=== PATIENT | male | born 1985 | race African-American/Black ===

== ENCOUNTER 2025-06-29 14:20 | Emergency (ER) | payer SELFPAY ==
--- NOTE | ~2025-06-29 | XR_ITS ---
EXAMINATION: XR chest 1V portable COMPARISON: No comparisons available. HISTORY: cp FINDINGS: The lungs are clear, no effusion. No pneumothorax. Heart is normal size. Mediastinal and hilar contours are within normal limits. Bony thorax no acute abnormality. Miscellaneous: None Impression: No acute cardiopulmonary abnormality. Reviewed, dictated and finalized at location A. Impression: No acute cardiopulmonary abnormality.
--- NOTE | ~2025-06-29 | CT_ITS ---
EXAMINATION: CTA chest PE abdomen pel DATE: 06/29/2025 16:48 INDICATION: Chest pain. TECHNIQUE: Computed tomography angiography (CTA) of the chest was performed with 100 mL Omnipaque-350 intravenous contrast timed to evaluate the pulmonary arteries. Coronal maximum intensity projection 3D-reconstructions were created by the technologist. Computed tomography (CT) of the abdomen and pelvis was performed with intravenous contrast. Automated exposure control and iterative reconstruction technique were employed. The dose-length product was 2062.49 mGy-cm. COMPARISON: None. FINDINGS: CTA chest: There is mild emphysema. There is minimal atelectasis on the right. No pleural effusion. The heart size is normal. No pericardial effusion. There is no pulmonary embolus. There is mild thoracic spondylosis. There are old healed bilateral rib fractures. CT abdomen and pelvis: The liver, gallbladder, spleen, pancreas, adrenal glands, and kidneys are normal. There are no dilated loops of bowel. The appendix is normal. There are no pathologically enlarged lymph nodes. There is no free intraperitoneal fluid. There are pins in right femoral head. There is moderate right hip osteoarthritis and mild left hip osteoarthritis. There is mild lumbar spondylosis. IMPRESSION: 1. No pulmonary embolus. Sensitivity is mildly decreased by motion artifact. 2. Mild emphysema. Reviewed, dictated and finalized at location K.
[2025-06-29 14:21] VITALS: BP 154/88; PULSE 81; RESP 13; TEMP 36.4; O2SAT 98
--- NOTE | 2025-06-29 14:32 | ECG_ITS ---
Test Date: 2025-06-29 14:27:00 Measurements Intervals [place] Rate: 85 P: 71 AL: 165 QRS: 51 QRSD: 98 T: 63 QT: 396 QTc: 473 Interpretive Statements SINUS RHYTHM NORMAL ECG No previous ECG available for comparison Electronically Signed On 06-30-2025 08:00:13 CDT by Elgin Murguia M.D.
[2025-06-29 14:34] VITALS: PULSE 73; O2SAT 100
[2025-06-29 15:15] VITALS: BP 155/94; PULSE 73; RESP 25; O2SAT 100
[2025-06-29 15:20] LABS: Hematocrit 42.9 % (42.0-52.0); Hemoglobin 14.2 g/dL (14.0-18.0); Immature Granulocyte Percent A 0.2 % (0-0.5); Lymphocytes Absolute Auto 0.87 K/mm3 (0.9-3.2); Mean Corpuscular HGB Conc 33.1 g/dl (32-36); Mean Corpuscular Hemoglobin 27.4 pg (26-34); Mean Corpuscular Volume 82.7 fl (80-100); Nucleated Red Blood Cells Absolute Auto 0.000 K/mm3 (0.0-0.012); Nucleated Red Blood Cells Perc 0.0 % (0.0-0.2); Platelet Count Result 278 k/mm3 (150-375); Red Blood Count 5.19 M/mm3 (4.6-6.20); White Blood Count 5.9 K/mm3 (4.5-10.0)
[2025-06-29 15:30] LABS: Alanine Aminotransferase 21 U/L (6-50); Albumin Level 4.4 g/dL (3.5-5.1); Alkaline Phosphatase 76 U/L (38-126); Anion Gap 10 mmol/L (4-12); Aspartate Amino Transferase 29 U/L (17-59); Bilirubin,Total 0.4 mg/dL (0.2-1.3); Blood Urea Nitrogen 14 mg/dL (9-20); Calcium 9.1 mg/dL (8.4-10.2); Carbon Dioxide 15 mmol/L (22-30); Chloride 110 mmol/L (98-107); Estimated CRCL calculation 117 ml/min; Estimated Glomerular Filt Rate > 60; Glucose 106 mg/dL (65-110); Lipase 68 U/L (23-300); Potassium 3.9 mmol/L (3.4-5.0); Sodium 135 mmol/L (137-145); Total Protein 8.4 g/dL (6.3-8.2)
[2025-06-29 15:32] LABS: INR 1.1; Prothrombin Time 13.9 Seconds (11.1-14.7)
[2025-06-29 15:33] LABS: Partial Thromboplastin Time 24.9 Seconds (22.3-36.8)
[2025-06-29 15:41] LABS: Troponin I 0.020 ng/mL (0.000-0.034)
--- NOTE | 2025-06-29 15:56 | ED.GENADULT ---
HPI - General Adult General Chief complaint: Chest Pain Stated complaint: extreme diaphoresis/CP Time Seen by Provider: 06/29/25 15:03 History of Present Illness HPI narrative: Jake Parks is a 40-year-old male who presents today and PD custody with complaints of having chest and abdomen pain that started 2 hours prior to arrival. He states that is more mid abdomen he feels like there is something crawling in his abdomen up to his chest he states that the pain is burning and severe in his belly but also into his chest he states he has history of a blood clot in his chest he has noise take his medications. He also states that he has a history of hypertension and bipolar. Related Data Allergies Allergy/AdvReac Type Severity Reaction Status Date / Time tramadol Allergy Hives Verified 06/29/25 14:38 Review of Systems Review of Systems: All systems reviewed & are unremarkable except as noted in HPI and below Exam Narrative: GENERAL: Patient is restrain the bed HEAD: Normocephalic, atraumatic. EYES: PERRLA and EOMI. ENT: Nares clear, no rhinorrhea or epistaxis. Mucous membranes moist. Oropharynx without tonsillar hypertrophy exudate or other lesions. Bilateral TMs pearly schneider nonbulging NECK: Supple. No adenopathy or masses. No carotid bruits or JVD CHEST: Clear to auscultation. No respiratory distress. No wheezes rales or rhonchi HEART: Regular rate and rhythm. No murmur heard. Normal peripheral pulses. ABDOMEN: Soft, nontender, nondistended, normal active bowel sounds. EXTREMITIES: Normal range of motion. No edema. SKIN: Warm, dry, no rash. NEURO: No focal deficits. Alert and oriented x3. PSYCH: Normal mood and affect. Course Vital Signs Vital signs: Vital Signs Temperature 36.4 C L 06/29/25 14:21 Pulse Rate 81 06/29/25 14:21 Respiratory Rate 13 06/29/25 14:21 Blood Pressure 154/88 H 06/29/25 14:21 Pulse Oximetry 98 06/29/25 14:21 Oxygen Delivery Room Air 06/29/25 14:21 Temperature 36.4 C L 06/29/25 14:21 Pulse Rate 73 06/29/25 15:15 Respiratory Rate 25 H 06/29/25 15:15 Blood Pressure 155/94 H 06/29/25 15:15 Pulse Oximetry 100 06/29/25 15:15 Oxygen Delivery Room Air 06/29/25 14:34 Medical Decision Making [facility] Narrative Medical decision making narrative: 40-year-old male who presents today with PD in custody from nursing home complaining of belly and chest pain. He states he does have a history of blood clots in his lungs, high blood pressure and bipolar. On exam he is thrashing around intermittently telling me that he feels like there is something burning in his stomach moving up into his chest and going on for 2 hours he states he did have some diarrhea On exam his lung sounds are clear bowel sounds are present abdomen is soft No recent fevers or cough. PD here and wanting a fit her confinement will start a cardiac workup including 2 troponins, CT PE protocol and a CT abdomen pelvis will treat him when it is somewhat itching, ketorolac fluids, dicyclomine and re-evaluate After re-evaluation patient she he states that he does feel something for his anxiety and bipolar will give him 1 dose of p.o. Ativan 1 mg and waiting to do the 2nd troponin before discharging His imaging is negative for PE or any acute findings and lab work is stable CBC is unremarkable CMP shows bicarb of 15 which is likely from him hyperventilating and there sodium 135, lipase negative Second trop is NEgative Patient will be d/c to nursing home PCP referral provided Return precautions provided Medical Records Medical records reviewed: Yes I reviewed the external patient's medical records. Vital Signs Vital Signs: Vital Signs Temperature 36.4 C L 06/29/25 14:21 Pulse Rate 81 06/29/25 14:21 Respiratory Rate 13 06/29/25 14:21 Blood Pressure 154/88 H 06/29/25 14:21 Pulse Oximetry 98 06/29/25 14:21 Oxygen Delivery Room Air 06/29/25 14:21 Temperature 36.4 C L 06/29/25 14:21 Pulse Rate 73 06/29/25 15:15 Respiratory Rate 25 H 06/29/25 15:15 Blood Pressure 155/94 H 06/29/25 15:15 Pulse Oximetry 100 06/29/25 15:15 Oxygen Delivery Room Air 06/29/25 14:34 Vitals reviewed Lab Data Lab results reviewed: Yes I reviewed the patient's lab results. 06/29/25 15:14 06/29/25 15:14 Labs: Lab Results 06/29/25 Range/Units 15:14 WBC 5.9 (4.5-10.0) K/mm3 RBC 5.19 (4.6-6.20) M/mm3 Hgb 14.2 (14.0-18.0) g/dL Hct 42.9 (42.0-52.0) % MCV 82.7 (80-100) fl MCH 27.4 (26-34) pg MCHC 33.1 (32-36) g/dl RDW 14.4 (11.5-14.5) % Plt Count 278 (150-375) k/mm3 MPV 8.9 (7.4-10.4) fl Immature Gran % (Auto) 0.2 (0-0.5) % Neut % (Auto) 76.4 H (45.5-73.1) % Lymph % (Auto) 14.9 L (18.3-44.2) % Prentiss % (Auto) 8.0 (2.6-8.5) % Eos % (Auto) 0.2 (0-4.4) % Baso % (Auto) 0.3 (0.2-1.2) % Lymph # (Auto) 0.87 L (0.9-3.2) K/mm3 Prentiss # (Auto) 0.5 (0.1-0.6) K/mm3 Eos # (Auto) 0.0 (0-0.3) K/mm3 Baso # (Auto) 0.0 (0.0-0.1) K/mm3 Abs Immat Gran (auto) 0.01 (0.00-0.031) K/mm3 Absolute Neuts (auto) 4.5 (1.3-6.7) K/mm3 Absolute Nucleated RBC 0.000 (0.0-0.012) K/mm3 Nucleated RBC % 0.0 (0.0-0.2) % PT 13.9 (11.1-14.7) Seconds INR 1.1 APTT 24.9 (22.3-36.8) Seconds Sodium 135 L (137-145) mmol/L Potassium 3.9 (3.4-5.0) mmol/L Chloride 110 H (98-107) mmol/L Carbon Dioxide 15 L (22-30) mmol/L Anion Gap 10 (4-12) mmol/L BUN 14 (9-20) mg/dL Creatinine 0.98 (0.7-1.3) mg/dL Estim Creat Clear Calc 117 ml/min Estimated GFR > 60 (59 - ) Glucose 106 (65-110) mg/dL Calcium 9.1 (8.4-10.2) mg/dL Total Bilirubin 0.4 (0.2-1.3) mg/dL AST 29 (17-59) U/L ALT 21 (6-50) U/L Alkaline Phosphatase 76 (38-126) U/L Troponin I 0.020 (0.000-0.034) ng/mL Total Protein 8.4 H (6.3-8.2) g/dL Albumin 4.4 (3.5-5.1) g/dL Lipase 68 (23-300) U/L Imaging Data Radiologist's impression: Impressions Chest X-Ray 06/29/25 15:29 Impression: No acute cardiopulmonary abnormality. Chest/Abdomen/Pelvis CTA 06/29/25 16:55 IMPRESSION: 1. No pulmonary embolus. Sensitivity is mildly decreased by motion artifact. 2. Mild emphysema. ECG Data EKG #1: ECG completion date: 06/29/25 ECG completion time: 14:27 Prior ECG tracings: not available for review Interpretation: Rate 85 FL 165 QRSd 98 QT 396 QTc 473 --[place]-- P 71 QRS 51 T 63 SINUS RHYTHM No previous ECG available for comparison EKG #2: ECG completion date: 06/29/25 ECG completion time: 18:02 Prior ECG tracings: available for review Interpretation: 62 FL 182 QRSd 102 QT 444 QTc 452 --[place]-- P 61 QRS 23 T 42 SINUS RHYTHM WITH SINUS ARRHYTHMIA Discharge Plan Discharge Clinical Impression: Atypical chest pain Abdominal pain Qualifiers: Abdominal location: unspecified location Qualified Code(s): R10.9 - Unspecified abdominal pain Patient Disposition: Home Condition: Stable Instructions: Antibiotic Form Additional Instructions: Continue your home medications, please follow up with the PCP in 1 week If you should have any new or worsening symptoms return to the ER. Patient is fit for confinement Patient Language: Lao Follow-up/Referrals: PHYSICIAN,LOOPER FIXER [Primary Care Provider, Internal Medicine] Jayden Maya MD [Physician, Family Practice] - 1 Week
[2025-06-29] MEDS: FAMOTIDINE 20 MG/2 ML VIAL IV PUSH (16:24)
[2025-06-29] MEDS: KETOROLAC 30 MG/ML VIAL (*BKC) IV PUSH (16:27)
[2025-06-29] MEDS: LACTATED RINGERS 1,000 ML 999 ML IV CONT (16:28)
[2025-06-29] MEDS: DICYCLOMINE HCL INJ 20 MG/2 ML VIAL IM (16:30)
[2025-06-29 16:32] VITALS: BP 145/88; PULSE 72; RESP 21; O2SAT 100
[2025-06-29 17:12] VITALS: BP 145/94; PULSE 65; RESP 23; O2SAT 100
--- NOTE | 2025-06-29 17:42 | ECG_ITS ---
Test Date: 2025-06-29 18:02:41 Measurements Intervals [place] Rate: 62 P: 61 [place]: 182 QRS: 23 QRSD: 102 T: 42 QT: 444 QTc: 452 Interpretive Statements SINUS RHYTHM WITH SINUS ARRHYTHMIA MODERATE T-WAVE ABNORMALITY, CONSIDER ANTEROSEPTAL ISCHEMIA [-0.1+ mV T WAVE IN V3/V4] ABNORMAL ECG Compared to ECG 06/29/2025 14:27:00 T-wave abnormality now present Possible ischemia now present Electronically Signed On 06-30-2025 08:07:17 CDT by Elgin Murguia M.D.
[2025-06-29] MEDS: LORazepam (*CRX) 1 MG TABLET PO (17:47)
[2025-06-29 18:29] LABS: Troponin I 0.022 ng/mL (0.000-0.034)
== END 2025-06-29 19:39 | disposition home or self-care (01) ==
PROVIDERS: Emergency Medicine; Emergency Provider Nurse Practitioner Family
DX: R07.89 Other chest pain (principal); R10.9 Unspecified abdominal pain; I10 Essential (primary) hypertension; Z79.899 Other long term (current) drug therapy
CPT/HCPCS: 36415; 71045; 71275; 74177; 80053; 83690; 84484; 85025; 85610; 85730; 93005; 96361; 96372; 96374; 96375; 99284; A9270; J0500; J1885; J7120; Q9967

== ENCOUNTER 2025-08-14 11:48 | Emergency (ER) | payer MEDICAID, SELFPAY ==
--- OUTSIDE RECORDS SUMMARY | 2025-04-28 04:45 | XMS_ITS ---
Author Organization [facility] Address [address] [facility] [address] [place] [address] Care Team Providers Care Glove Turner And Former Name Role Phone Roni Regan Primary Care Provider Encounters Encounter Location Date Provider Diagnosis [address] [place] [address] 04/28/2025 Roni Regan Plan Of Treatment No Information Progress Notes * RADHA TEMPLEDOB:1985 (40 yo M)Acc No.[id number]:04/28/2025 Progress Notes Patient: RADHA MONTES Provider: Pool Regan M.D. :1985 A ge:40 Y S ex:Male Date:04/28/2025 Address:[address] Subjective: * Chief Complaints: * * Medical History: Objective: * Vitals: Assessment: Plan: * Treatment: * * Electronic signature of Darryl Regan MD on 08/14/2025 at 12:51 PM EDT Sign off status: Pending * Provider: Pool Regan M.D. Date: 0 04/28/2025 Generated for Printi ng/Faxing/eTransmitting on: 1 12:51 PM EDT
--- OUTSIDE RECORDS SUMMARY | 2025-05-04 10:15 | XMS_ITS ---
Author Organization [facility] Address [address] [address] Care Team Providers Care Press Set Up Person Name Role Phone Roni Regan Primary Care Provider Allergies Allergen (clinical drug ingredient) Drug/Non Drug Allergy documented on EMR Reaction Allergy Type Onset Date Status naproxen Naproxen hives Drug Allergy Active REASON FOR VISIT Video - c/o sore throat x 4 days. Covid-Neg, Consent given for video visit. - ple, Pain med eval/refill Medications Medication SIG (Take, Route, Frequency, Duration) Notes Start Date End Date Status Warfarin Sodium 10 MG 1 tablet Orally On ce a day or as directed; Duration: 30 day(s) 01/08/2023 Not-Taking Warfarin Sodium 2 MG 1 tablet Orally Onc e a day Not-Taking Symbicort 160-4.5 MCG/ACT INHALE 2 PUFFS BY MOUTH TWICE DAILY; Duration: 30 days Active Warfarin Sodium 7.5 MG TAKE 1 TABLET BY MOUTH EVERY DAY; Duration: 30 Not-Taki ng amLODIPine Besylate 10 MG TAKE 1 TABLET BY MOUTH EVERY DAY; Duration: 90 days Active busPIRone HCl 30 MG 1 tablet Orally Twic e a day Active Tylenol 325 MG 1 tablet as needed Orally every 6 hrs; Duration: 30 days 07/22/2024 Active Ferrous Sulfate 325 (65 Fe) MG 1 tablet Orally Once a day Active PARoxetine HCl 20 MG 1 tablet in the mor gabrielle Orally Once a day Active Multivitamin - 1 tablet Orally Once a day; Duration: 30 day(s) 12/26/2023 Active Zithromax Z-Deric 250 MG as directed Orall y 2 TABLETS FIRST DAY AND 1 TABLET EACH DAY FOR 5 DAYS; Duration: 5 days 05/04/2025 Active HYDROcodone-Acetaminophen 10-325 MG 1 tablet as needed Orally every 6 hrs; Duration: 30 days 04/14/2025 Active Social History Tobacco Use: Social History Observation Description Date Details (start date - stop date) Current Smoker NA - NA Tobacco Use/Smoking Question Answer Notes Are you a current smoker How often do you smoke cigarettes? every day How many cigarettes a day do you smoke? 5 or les s How soon after you wake up do you smoke your fir st cigarette? 6-30 minutes Are you interested in quitting? Ready to quit Alcohol Screen (Audit-C) Question Answer Notes Did you have a drink containing alcohol in the p ast year? No Points 0 Interpretation Negative Tobacco use other than smoking: Question Answer Notes Are you an other tobacco user? No Vital Signs Height 71 in 05/04/2025 ple Encounters Encounter Location Date Provider Diagnosis [place] [id number] [address] 05/04/2025 Roni Regan Pharyngitis J02.9 ; Primary hypertension I10 ; Mild intermittent asthma without complication J45.20 ; Low back pain, unspecified M54.50 ; Chronic pain syndrome G89.4 and Narcotic dependence F11.20 Assessments Encounter Date Diagnosis (ICD Code) Assessment Notes Treatment Notes Treatment Clinical Notes Section Notes 05/04/2025 Pharyngitis (ICD-10 - J02.9) 05/04/2025 Primary hypertension (ICD-10 - I10) High Blood Pressure: Care Instructions material was published 05/04/2025 Mild intermittent asthma without complication (ICD-10 - J45.20) 05/04/2025 Low back pain, unspecified (ICD-10 - M54.50) 05/04/2025 Chronic pain syndrome (ICD-10 - G89.4) 05/04/2025 Narcotic dependence (ICD-10 - F11.20) Plan Of Treatment Medication Medication Name Sig Start Date Stop Date Notes Zithromax Z-Deric 250 MG as directed Orall y 2 TABLETS FIRST DAY AND 1 TABLET EACH DAY FOR 5 DAYS; Duration: 5 days 05/04/2025 Treatment Notes Assessment Notes Primary hypertension High Blood Pressure : Care Instructions material was published Progress Notes * RADHA TEMPLEDOB:1985 (40 yo M)Acc No.[id number]:05/04/2025 Progress Notes Patient: RADHA MONTES Provider: Pool Regan M.D. :1985 A ge:40 Y S ex:Male Date:05/04/2025 Address:[address] [place] [address] Subjective: * Chief Complaints: * 1 . Video - c/o sore throat x 4 days. Covid-Neg. 2. Consent given for video visit. -ple. 3. Pain med eval/refill. * Medical History: H TN, BLood clots in lungs, Asthma. * Surgical History: h ernia 2020, hip surgery 04/05. * Family History: F ather: alive. M other: alive, diagnosed with Unspecified essential hypertension. 3 brother(s) , 1 sister(s) - healthy. 3 son(s) , 3 daughter(s) - healthy. . * Social History: T obacco Use: T obacco Use/Smoking A re you a c urrent smoker, H ow often do you smoke cigarettes? e very day, H ow many cigarettes a day do you smoke? 5 or less, H ow soon after you wake up do you smoke your first cigarette? 6 -30 minutes, A re you interested in quitting? R tru to quit. T obacco use other than smoking A re you an other tobacco user? N o. D rugs/Alcohol: D rugs H ave you used drugs other than those for medical reasons in the past 12 months??No. A lcohol Screen (Audit-C) D id you have a drink containing alcohol in the past year? N o, P oints 0 , I nterpretation N egative. C affeine I ntake: n one. D o you smoke marijuana?: Admits. Do you drink alcohol?: No. * Medications: T aking HYDROcodone-Acetaminophen 10-325 MG Tablet 1 tablet as needed Orally every 6 hrs , Taking Ferrous Sulfate 325 (65 Fe) MG Tablet 1 tablet Orally Once a day , Taking PARoxetine HCl 20 MG Tablet 1 tablet in the morning Orally Once a day , Taking busPIRone HCl 30 MG Tablet 1 tablet Orally Twice a day , Taking Tylenol 325 MG Tablet 1 tablet as needed Orally every 6 hrs , Taking Multivitamin - Tablet 1 tablet Orally Once a day , Taking amLODIPine Besylate 10 MG Tablet TAKE 1 TABLET BY MOUTH EVERY DAY , Taking Symbicort 160-4.5 MCG/ACT Aerosol INHALE 2 PUFFS BY MOUTH TWICE DAILY , Not-Taking/PRN Warfarin Sodium 7.5 MG Tablet TAKE 1 TABLET BY MOUTH EVERY DAY , Not-Taking/PRN Warfarin Sodium 10 MG Tablet 1 tablet Orally Once a day or as directed , Not-Taking/PRN Warfarin Sodium 2 MG Tablet 1 tablet Orally Once a day , Medication List reviewed and reconciled with the patient * Allergies: N aproxen: hives. Objective: * Vitals: H t: 71 in, Ht-cm: 180.34 cm. ple. Assessment: * Assessment: 1. P haryngitis - J02.9 (Primary) 2 . P rimary hypertension - I10 ? 3 . M ild intermittent asthma without complication - J45.20 4 . L ow back pain, unspecified - M54.50 5 . C hronic pain syndrome - G89.4 ?6. N arcotic dependence - F11.20 Plan: * Treatment: 2. P rimary hypertension Notes: High Blood Pressure: Care Instructions material was published * Preventive Medicine: Your Preventative Wellness Plan: E ndoscopy E ndoscopy Date 10/26/2023. Counseling: C are goal follow-up plan: A lilliana Normal BMI Follow-up F eeding regime, Giving encouragement to exercise. * * Electronic signature of Darryl Regan MD on 08/14/2025 at 12:52 PM EDT Sign off status: Pending * Provider: Pool Regan M.D. Date: 0 05/04/2025 Generated for [place]/John Paul/Jaimee on: 12:52 PM EDT
--- OUTSIDE RECORDS SUMMARY | 2025-05-07 04:45 | XMS_ITS ---
Author Organization [facility] Address [address] [facility] [address] [place] [address] Care Team Providers Care Stitcher Hand Name Role Phone Roni Regan Primary Care Provider [phone] Encounters Encounter Location Date Provider Diagnosis [address] [place] [address] 05/07/2025 Roni Regan Plan Of Treatment No Information Progress Notes * RADHA TEMPLEDOB:1985 (40 yo M)Acc No.[id number]:05/07/2025 Progress Notes Patient: RADHA MONTES Provider: Pool Regan M.D. :1985 A ge:40 Y S ex:Male Date:05/07/2025 Address:[address] [facility] Subjective: * Chief Complaints: * * Medical History: Objective: * Vitals: Assessment: Plan: * Treatment: * * Electronic signature of Darryl Regan MD on 08/14/2025 at 12:52 PM EDT Sign off status: Pending * Provider: Pool Regan M.D. Date: 05/07/2025 Generated for Printi ng/Faxing/eTransmitting on: 1 12:52 PM EDT
--- OUTSIDE RECORDS SUMMARY | 2025-05-21 09:45 | XMS_ITS ---
Author Organization [facility] Address [address] [facility] 2 [place] [address] Care Team Providers Care Support Analyst Name Role Phone Roni Regan Primary Care Provider Encounters Encounter Location Date Provider Diagnosis [address] [place] [address] 05/21/2025 Roni Regan Plan Of Treatment No Information Progress Notes * RADHA TEMPLEDOB:1985 (40 yo M)Acc No.[id number]:05/21/2025 Progress Notes Patient: RADHA MONTES Provider: Pool Regan M.D. :1985 A ge:40 Y S ex:Male Date:05/21/2025 Address:[address] Subjective: * Chief Complaints: * * Medical History: Objective: * Vitals: Assessment: Plan: * Treatment: * * Electronic signature of Darryl Regan MD on 08/14/2025 at 12:52 PM EDT Sign off status: Pending * Provider: Pool Regan M.D. Date: 0 05/21/2025 Generated for Printi ng/Faxing/eTransmitting on: 1 12:52 PM EDT
--- OUTSIDE RECORDS SUMMARY | 2025-06-09 08:15 | XMS_ITS ---
Author Organization [facility] Address [address] [address] Care Team Providers Care It Quality Analyst Name Role Phone Roni Regan Primary Care Provider Allergies Allergen (clinical drug ingredient) Drug/Non Drug Allergy documented on EMR Reaction Allergy Type Onset Date Status naproxen Naproxen hives Drug Allergy Active REASON FOR VISIT Pain med eval/refill, F/U HTN Medications Medication SIG (Take, Route, Frequency, Duration) Notes Start Date End Date Status Budesonide-Formoterol Fumarate 160-4.5 MCG/ACT INHALE 2 PUFFS BY MOUTH TWICE DAILY; Duration: 60 Active Warfarin Sodium 7.5 MG TAKE 1 TABLET BY MOUTH EVERY DAY; Duration: 30 Not-Taki ng amLODIPine Besylate 10 MG TAKE 1 TABLET BY MOUTH EVERY DAY; Duration: 90 days Active Zithromax Z-Deric 250 MG as directed Orall y 2 TABLETS FIRST DAY AND 1 TABLET EACH DAY FOR 5 DAYS; Duration: 5 days 05/04/2025 Active HYDROcodone-Acetaminophen 10-325 MG 1 tablet as needed Orally every 6 hrs; Duration: 30 days 05/04/2025 Active Multivitamin - 1 tablet Orally Once a day; Duration: 90 days 12/26/2023 Active Ferrous Sulfate 325 (65 Fe) MG 1 tablet Orally Once a day Active PARoxetine HCl 20 MG 1 tablet in the mor gabrielle Orally Once a day Active busPIRone HCl 30 MG 1 tablet Orally Twic e a day Active Tylenol 325 MG 1 tablet as needed Orally every 6 hrs; Duration: 30 days 07/22/2024 Active Warfarin Sodium 10 MG 1 tablet Orally On ce a day or as directed; Duration: 30 day(s) 01/08/2023 Not-Taking Warfarin Sodium 2 MG 1 tablet Orally Onc e a day Not-Taking Social History Tobacco Use: Social History Observation [...] an other tobacco user? No Vital Signs Temperature 98.0 degrees Fahrenheit 06/09/20 25 Blood pressure systolic 148 mm Hg 06/09/20 25 Blood pressure diastolic 90 mm Hg 025 Heart Rate 96 /min 06/09/2025 Respiratory Rate 16 /min 06/09/2025 Height 71 in 06/09/2025 Weight 261 lbs 06/09/2025 BMI 36.4 kg/m2 06/09/2025 Oximetry 101 % 06/09/2025 tm/ple Encounters Encounter Location Date Provider Diagnosis [facility] [address] [address] 06/09/2025 Roni Regan Primary hypertension I10 ; Mild intermittent asthma without complication J45.20 ; Anxiety F41.9 ; Low back pain, unspecified M54.50 ; Chronic pain syndrome G89.4 ; Narcotic dependence F11.20 and History of pulmonary embolism Z86.711 Assessments Encounter Date Diagnosis (ICD Code) Assessment Notes Treatment Notes Treatment Clinical Notes Section Notes 06/09/2025 Primary hypertension (ICD-10 - I10) High Blood Pressure: Care Instructions material was published 06/09/2025 Mild intermittent asthma without complication (ICD-10 - J45.20) 06/09/2025 Anxiety (ICD-10 - F41.9) 06/09/2025 Low back pain, unspecified (ICD-10 - M54.50) 06/09/2025 Chronic pain syndrome (ICD-10 - G89.4) 06/09/2025 Narcotic dependence (ICD-10 - F11.20) 06/09/2025 History of pulmonary embolism (ICD-10 - Z86.711) Plan Of Treatment Medication Medication Name Sig Start Date Stop Date Notes amLODIPine Besylate 10 MG TAKE 1 TABLET BY MOUTH EVERY DAY; Duration: 90 days Multivitamin - 1 tablet Orally Once a day; Duration: 90 days 12/26/2023 Treatment Notes Assessment Notes Primary hypertension High Blood Pressure : Care Instructions material was published Progress Notes * RADHA TEMPLEDOB:1985 (40 yo M)Acc No.[id number]:06/09/2025 Progress Notes Patient: RADHA MONTES Provider: Pool Regan M.D. :1985 A ge:40 Y S ex:Male Date:06/09/2025 Address:[address] [place] [address] Subjective: * Chief Complaints: * 1 . Pain med eval/refill. 2. F/U HTN. * Medical History: H TN, BLood clots [...] you drink alcohol?: No. * Medications: T ingeg Ferrous Sulfate 325 (65 Fe) MG Tablet [...] tablet Orally Once a day , Taking Zithromax Z-Deric 250 MG Tablet as directed Orally 2 TABLETS FIRST DAY AND 1 TABLET EACH DAY FOR 5 DAYS , Taking HYDROcodone-Acetaminophen 10-325 MG Tablet 1 tablet as needed Orally every 6 hrs , Taking Budesonide-Formoterol Fumarate 160-4.5 MCG/ACT Aerosol INHALE 2 PUFFS BY MOUTH TWICE DAILY , Taking amLODIPine Besylate 10 MG Tablet TAKE 1 TABLET BY MOUTH EVERY DAY , Not-Taking/PRN Warfarin Sodium 7.5 MG Tablet TAKE 1 TABLET BY MOUTH EVERY DAY , Not-Taking/PRN Warfarin Sodium 10 MG Tablet 1 tablet Orally Once a day or as directed , Not-Taking/PRN Warfarin Sodium 2 MG Tablet 1 tablet Orally Once a day , Medication List reviewed and reconciled with the patient * Allergies: N aproxen: hives. Objective: * Vitals: T emp:98.0F, HR:96/min, BP:148/90mm Hg, Wt:261lbs, BMI:36.4Index, Ht: 71 in, RR:16/min, Oxygen sat %:101%, Peak Flow:RA, Ht-cm: 180.34 cm, Wt-k.39 kg. tm/ple. Assessment: * Assessment: 1. P rimary hypertension - I10 (Primary) 2 . M ild intermittent asthma without complication - J45.20 3 . A nxiety - F41.9 4 . L ow back pain, unspecified - M54.50 5 . C hronic pain syndrome - G89.4 6 . N arcotic dependence - F11.20 7 . H istory of pulmonary embolism - Z86.711 Plan: * Treatment: * Preventive Medicine: Your Preventative Wellness Plan: E ndoscopy E ndoscopy Date 1 10/26/2023. Counseling: C are goal follow-up plan: A lilliana Normal BMI Follow-up F eeding regime, Giving encouragement to exercise. * * Electronic signature of Darryl Regan MD on 08/14/2025 at 12:52 PM EDT Sign off status: Pending * Provider: Pool Regan M.D. Date: 0 06/09/2025 Generated for [place]/John Paul/[place]ell[place] on: 1 12:52 PM EDT
--- OUTSIDE RECORDS SUMMARY | 2025-06-17 10:15 | XMS_ITS ---
Author Organization [facility] Address [address] [facility] 2 [place] [address] Care Team Providers Care Powerhouse Mechanic Helper Name Role Phone Roni Rgean Primary Care Provider Encounters Encounter Location Date Provider Diagnosis [address] [place] [address] 06/17/2025 Roni Regan Plan Of Treatment No Information Progress Notes * RADHA TEMPLEDOB:1985 (40 yo M)Acc No.[id number]:06/17/2025 Progress Notes Patient: RADHA OMNTES Provider: Pool Regan M.D. :1985 A ge:40 Y S ex:Male Date:06/17/2025 Address:[address] Subjective: * Chief Complaints: * * Medical History: Objective: * Vitals: Assessment: Plan: * Treatment: * * Electronic signature of Darryl Regan MD on 08/14/2025 at 12:52 PM EDT Sign off status: Pending * Provider: Pool Regan M.D. Date: 0 06/17/2025 Generated for Printi ng/Faxing/eTransmitting on: 1 12:52 PM EDT
--- OUTSIDE RECORDS SUMMARY | 2025-07-14 05:45 | XMS_ITS ---
Author Organization [facility] Address [address] [address] Care Team Providers Care Prepress Operator Name Role Phone Raj Reganbbir Primary Care Provider [phone] Allergies Allergen (clinical drug ingredient) Drug/Non Drug Allergy documented on EMR Reaction Allergy Type Onset Date Status naproxen Naproxen hives Drug Allergy Active REASON FOR VISIT Acute Sinusitis Medications Medication SIG (Take, Route, Frequency, Duration) Notes Start Date End Date Status Warfarin Sodium 7.5 MG TAKE 1 TABLET BY MOUTH EVERY DAY; Duration: 30 Not-Taki ng Budesonide-Formoterol Fumarate 160-4.5 MCG/ACT INHALE 2 PUFFS BY MOUTH TWICE DAILY; Duration: 60 Active Ferrous Sulfate 325 (65 Fe) MG 1 tablet Orally Once a day; Duration: 90 days Active Multivitamin - 1 tablet Orally Once a day; Duration: 90 days 12/26/2023 Active Warfarin Sodium 10 MG 1 tablet Orally On ce a day or as directed; Duration: 30 day(s) 01/08/2023 Not-Taking HYDROcodone-Acetaminophen 10-325 MG 1 tablet as needed Orally every 6 hrs; Duration: 30 days 06/09/2025 Active amLODIPine Besylate 10 MG TAKE 1 TABLET BY MOUTH EVERY DAY; Duration: 90 days Active Zithromax Z-Deric 250 MG as directed Orall y 2 TABLETS FIRST DAY AND 1 TABLET EACH DAY FOR 5 DAYS; Duration: 5 days 05/04/2025 Not-Takin g Tylenol 325 MG 1 tablet as needed Orally every 6 hrs; Duration: 30 days 07/22/2024 Active busPIRone HCl 30 MG 1 tablet Orally Twic e a day Active Cefdinir 300 MG 1 Capsule Orally alice ry 12 hours; Duration: 7 days 07/14/2025 Active PARoxetine HCl 20 MG 1 tablet in the mor gabrielle Orally Once a day Active Warfarin Sodium 2 MG 1 tablet Orally Onc e a day Not-Taking Problems Problem Type SNOMED Code ICD Code Onset Dates Problem Status W/U Status Risk Notes Problem Sinusitis (77378808) Sinusitis (J32.9) Active confirmed Vital Signs Temperature 98.0 degrees Fahrenheit 07/14/20 25 Blood pressure systolic 138 mm Hg 07/14/20 25 Blood pressure diastolic 86 mm Hg 025 Heart Rate 97 /min 07/14/2025 Respiratory Rate 16 /min 07/14/2025 Height 71 in 07/14/2025 Weight 276 lbs 07/14/2025 BMI 38.49 kg/m2 07/14/2025 Oximetry 97 % 07/14/2025 Encounters Encounter Location Date Provider Diagnosis [place] [id number] [address] 07/14/2025 Roni Regan Sinusitis J32.9 ; Primary hypertension I10 ; Anxiety F41.9 ; Morbid obesity E66.01 ; Low back pain, unspecified M54.50 ; Chronic pain syndrome G89.4 and Non compliance with medical treatment Z91.199 Assessments Encounter Date Diagnosis (ICD Code) Assessment Notes Treatment Notes Treatment Clinical Notes Section Notes 07/14/2025 Sinusitis (ICD-10 - J32.9) Acute Sinusitis: Care Instructions material was published 07/14/2025 Primary hypertension (ICD-10 - I10) 07/14/2025 Anxiety (ICD-10 - F41.9) 07/14/2025 Morbid obesity (ICD-10 - E66.01) 07/14/2025 Low back pain, unspecified (ICD-10 - M54.50) 07/14/2025 Chronic pain syndrome (ICD-10 - G89.4) 07/14/2025 Non compliance with medical treatment (ICD-10 - Z91.199) Plan Of Treatment Medication Medication Name Sig Start Date Stop Date Notes Cefdinir 300 MG 1 Capsule Orally alice ry 12 hours; Duration: 7 days 07/14/2025 Treatment Notes Assessment Notes Sinusitis Acute Sinusitis: Car e Instructions material was published Progress Notes * RADHA TEMPLEDOB:1985 (40 yo M)Acc No.[id number]:07/14/2025 Progress Notes Patient: RADHA MONTES Provider: Pool Regan M.D. :1985 A ge:40 Y S ex:Male Date:07/14/2025 Address:[address] [place], [place] [address] Subjective: * Chief Complaints: * 1 . Acute Sinusitis. * Medical History: H [place], BLood clots in lungs, Asthma. * Surgical History: h ernia 2020, hip surgery 04/05. * Family History: F ather: alive. M other: alive, diagnosed with Unspecified essential hypertension. 3 brother(s) , 1 sister(s) - healthy. 3 son(s) , 3 daughter(s) - healthy. . * Medications: T aking PARoxetine HCl 20 MG Tablet 1 tablet in the morning Orally Once a day , Taking busPIRone HCl 30 MG Tablet 1 tablet Orally Twice a day , Taking Tylenol 325 MG Tablet 1 tablet as needed Orally every 6 hrs , Taking amLODIPine Besylate 10 MG Tablet TAKE 1 TABLET BY MOUTH EVERY DAY , Taking HYDROcodone-Acetaminophen 10-325 MG Tablet 1 tablet as needed Orally every 6 hrs , Taking Multivitamin - Tablet 1 tablet Orally Once a day , Taking Ferrous Sulfate 325 (65 Fe) MG Tablet 1 tablet Orally Once a day , Taking Budesonide-Formoterol Fumarate 160-4.5 MCG/ACT Aerosol INHALE 2 PUFFS BY MOUTH TWICE DAILY , Not-Taking/PRN Zithromax Z-Deric 250 MG Tablet as directed Orally 2 TABLETS FIRST DAY AND 1 TABLET EACH DAY FOR 5 DAYS , Not-Taking/PRN Warfarin Sodium 7.5 MG Tablet TAKE 1 TABLET BY MOUTH EVERY DAY , Not-Taking/PRN Warfarin Sodium 10 MG Tablet 1 tablet Orally Once a day or as directed , Not-Taking/PRN Warfarin Sodium 2 MG Tablet 1 tablet Orally Once a day , Medication List reviewed and reconciled with the patient * Allergies: N aproxen: hives. Objective: * Vitals: T emp:98.0F, HR:97/min, BP:138/86mm Hg, Wt:276lbs, BMI:38.49Index, Ht: 71 in, RR:16/min, Oxygen sat %:97%, Peak Flow:RA, Ht-cm: 180.34 cm, Wt-k.19 kg. Assessment: * Assessment: 1. S inusitis - J32.9 (Primary) 2 . P rimary hypertension - I10 ?3. A nxiety - F41.9 4 . M orbid obesity - E66.01 5 .?Low back pain, unspecified - M54.50 6 . C hronic pain syndrome - G89.4 & #160; 7 . N on compliance with medical treatment - Z91.199 Plan: * Treatment: * Preventive Medicine: Counseling: C are goal follow-up plan: A lilliana Normal BMI Follow-up F eeding regime, Giving encouragement to exercise. * * Electronic signature of Darryl Regan MD on 08/14/2025 at 12:53 PM EDT Sign off status: Pending * Provider: Pool Regan M.D. Date: 0 07/14/2025 Generated for [place]/John Paul/[place] on: 1 12:53 PM EDT
--- OUTSIDE RECORDS SUMMARY | 2025-07-28 09:15 | XMS_ITS ---
Author Organization [facility] Address [address] [facility] [address] [place] [address] Care Team Providers Care Pad Machine Offbearer Name Role Phone Roni Regan Primary Care Provider Encounters Encounter Location Date Provider Diagnosis [address] [place] [address] 07/28/2025 Roni Regan Plan Of Treatment No Information Progress Notes * LEE TEMPLEFANTASMADOB:1985 (40 yo M)Acc No.[id number]:07/28/2025 Progress Notes Patient: RADHA MONTES Provider: Pool Regan M.D. :1985 A ge:40 Y S ex:Male Date:07/28/2025 Address:[address] Subjective: * Chief Complaints: * * Medical History: Objective: * Vitals: Assessment: Plan: * Treatment: * * Electronic signature of Darryl Regan MD on 08/14/2025 at 12:52 PM EDT Sign off status: Pending * Provider: Pool Regan M.D. Date: Generated for Printi ng/Faxing/eTransmitting on: 12:52 PM EDT
--- OUTSIDE RECORDS SUMMARY | 2025-08-04 05:00 | XMS_ITS ---
Author Organization [facility] Address [address] [facility] 2 [place] [address] Care Team Providers Care Practical Nursing Teacher Name Role Phone Roni Regan Primary Care Provider Encounters Encounter Location Date Provider Diagnosis [address] [place] [address] 08/04/2025 Roni Regan Plan Of Treatment No Information Progress Notes * LEE TEMPLEFANTASMADOB:1985 (40 yo M)Acc No.[id number]:08/04/2025 Progress Notes Patient: RADHA MONTES Provider: Pool Regan M.D. :1985 A ge:40 Y S ex:Male Date:08/04/2025 Address:[address] Subjective: * Chief Complaints: * * Medical History: Objective: * Vitals: Assessment: Plan: * Treatment: * * Electronic signature of Darryl Regan MD on 08/14/2025 at 12:52 PM EDT Sign off status: Pending * Provider: Pool Regan M.D. Date: Generated for Printi ng/Faxing/eTransmitting on: 12:52 PM EDT
--- OUTSIDE RECORDS SUMMARY | 2025-08-13 08:45 | XMS_ITS ---
Author Organization [facility] Address [address] [address] Care Team Providers Care Manager Business Operations Name Role Phone Roni Regan Primary Care Provider [phone] Allergies Allergen (clinical drug ingredient) Drug/Non Drug Allergy documented on EMR Reaction Allergy Type Onset Date Status naproxen Naproxen hives Drug Allergy Active REASON FOR VISIT Pain meds eval/refill, C/O- nausea , feeling hot X 2 days Medications Medication SIG (Take, Route, Frequency, Duration) Notes Start Date End Date Status Zithromax Z-Deric 250 MG as directed Orall y 2 TABLETS FIRST DAY AND 1 TABLET EACH DAY FOR 5 DAYS; Duration: 5 days 05/04/2025 Not-Takin g HYDROcodone-Acetaminophen 10-325 MG 1 tablet as needed Orally every 6 hrs; Duration: 30 days 07/14/2025 Active Warfarin Sodium 2 MG 1 tablet Orally Onc e a day Not-Taking Warfarin Sodium 10 MG 1 tablet Orally On ce a day or as directed; Duration: 30 day(s) 01/08/2023 Not-Taking Warfarin Sodium 7.5 MG TAKE 1 TABLET BY MOUTH EVERY DAY; Duration: 30 Not-Taki ng Cefdinir 300 MG 1 Capsule Orally alice ry 12 hours; Duration: 7 days 07/14/2025 Active Budesonide-Formoterol Fumarate 160-4.5 MCG/ACT INHALE 2 PUFFS BY MOUTH TWICE DAILY; Duration: 60 Active Ferrous Sulfate 325 (65 Fe) MG 1 tablet Orally Once a day; Duration: 90 days Active Multivitamin - 1 tablet Orally Once a day; Duration: 90 days 12/26/2023 Active amLODIPine Besylate 10 MG TAKE 1 TABLET BY MOUTH EVERY DAY; Duration: 90 days Active Tylenol 325 MG 1 tablet as needed Orally every 6 hrs; Duration: 30 days 07/22/2024 Active busPIRone HCl 30 MG 1 tablet Orally Twic e a day Active PARoxetine HCl 20 MG 1 tablet in the mor gabrielle Orally Once a day Active Problems Problem Type SNOMED Code ICD Code Onset Dates Problem Status W/U Status Risk Notes Problem Nausea and vomiting (93973994) Nausea & vomiting (R11.2) Active confirmed Problem Malaise (071745073) Malaise (R53.81) Active confirmed Problem Dyspepsia (540631735) Dyspepsia (R10.13) Active confirmed Vital Signs Temperature 98.0 degrees Fahrenheit 08/13/20 25 Blood pressure systolic 120 mm Hg 08/13/20 25 Blood pressure diastolic 84 mm Hg 025 Heart Rate 87 /min 08/13/2025 Respiratory Rate 16 /min 08/13/2025 Height 71 in 08/13/2025 Weight 272 lbs 08/13/2025 BMI 37.93 kg/m2 08/13/2025 Oximetry 98 % 08/13/2025 TM Encounters Encounter Location Date Provider Diagnosis [address] [address] 08/13/2025 Roni Regan Primary hypertension I10 ; Mild intermittent asthma without complication J45.20 ; Anxiety F41.9 ; Nausea & vomiting R11.2 ; Malaise R53.81 ; Low back pain, unspecified M54.50 and Dyspepsia R10.13 Assessments Encounter Date Diagnosis (ICD Code) Assessment Notes Treatment Notes Treatment Clinical Notes Section Notes 08/13/2025 Primary hypertension (ICD-10 - I10) 08/13/2025 Mild intermittent asthma without complication (ICD-10 - J45.20) 08/13/2025 Anxiety (ICD-10 - F41.9) 08/13/2025 Nausea & vomiting (ICD-10 - R11.2) 08/13/2025 Malaise (ICD-10 - R53.81) 08/13/2025 Low back pain, unspecified (ICD-10 - M54.50) 08/13/2025 Dyspepsia (ICD-10 - R10.13) Plan Of Treatment No Information Progress Notes * RADHA TEMPLEDOB:1985 (40 yo M)Acc No.[id number]:08/13/2025 Progress Notes Patient: RADHA MONTES Provider: Pool Regan M.D. :1985 A ge:40 Y S ex:Male Date:08/13/2025 Address:[address] [place] [address] Subjective: * Chief Complaints: * 1 . Pain meds eval/refill. 2. C/O- nausea , feeling hot X 2 days. * Medical History: H [place], BLood clots in lungs, Asthma. * Surgical History: h ernia 2020, hip surgery 04/05. * Hospitalization/Major Diagno stic Procedure: D enies Past Hospitalization. * Family History: F ather: alive. M [...] TABLET BY MOUTH EVERY DAY , Taking Multivitamin - Tablet 1 tablet Orally Once a day , Taking Ferrous Sulfate 325 (65 Fe) MG Tablet 1 tablet Orally Once a day , Taking Budesonide-Formoterol Fumarate 160-4.5 MCG/ACT Aerosol INHALE 2 PUFFS BY MOUTH TWICE DAILY , Taking Cefdinir 300 MG Capsule 1 Capsule Orally every 12 hours , Taking HYDROcodone-Acetaminophen 10-325 MG Tablet 1 tablet as needed Orally every 6 hrs , Not-Taking/PRN Zithromax Z-Deric 250 MG Tablet [...] aproxen: hives. Objective: * Vitals: T emp:98.0F, HR:87/min, BP:120/84mm Hg, Wt:272lbs, BMI:37.93Index, Ht: 71 in, RR:16/min, Oxygen sat %:98%, Peak Flow: RA, Ht-cm: 180.34 cm, Wt-k.38 kg. TM. Assessment: * Assessment: 1. M ild intermittent asthma without complication - J45.20 2 . P rimary hypertension - I10 (Primary) 3 . A nxiety - F41.9 4 . N ausea & vomiting - R11.2 5 . M alaise - R53.81 6 . L ow back pain, unspecified - M54.50 7 . D yspepsia - R10.13 Plan: * Treatment: * * Electronic signature of Darryl Regan MD on 08/14/2025 at 12:53 PM EDT Sign off status: Pending * Provider: Pool Regan M.D. Date: Generated for [place]/John Paul/Jaimee on: 12:53 PM EDT
--- NOTE | 2025-08-14 11:50 | PC.NURSE ---
Patient requesting IV removed prior to patient being triaged. patients pre-hospital IV removed at time of arrival.
--- OUTSIDE RECORDS SUMMARY | 2025-08-14 11:52 | XMS_ITS | Clinical Summary ---
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
--- NOTE | 2025-08-14 11:55 | PC.NURSE ---
Pt was brought to triage and reported that his chest pain was resolved and he did not want to be seen anymore. Pt was advised of the risks of leaving without being seen for chest pain and still chose not to be seen. Pt requested the removal of his IV before he was even checked in.
--- OUTSIDE RECORDS SUMMARY | 2025-08-14 12:14 | XMS_ITS | Clinical Summary ---
Author Organization [facility] Address [address] [place] [address] Phone Care Team Providers Care Developmental Psychologist Name Role Phone Unavailable Primary Care Provider Unavailabl e Social History Tobacco Use Types Packs/Day Years Used Date Smoking Tobacco: Never Assessed Sex and Gender Information Value Date Recorded Sex Assigned at Not on file Legal Sex Male 8:37 AM [employer] Gender Identity Not on file Sexual Orientation Not on file Plan of Treatment Health Maintenance Due Date Last Done Comments DTAP/TDAP/TD VACCINES (1 - Tdap) 2004 HEPATITIS B VACCINES (1 of 3 - 19+ 3-dose series) 04/2004 HPV VACCINES (1 - 3-dose SCDM series) 2012 INFLUENZA VACCINE (#1) 2025
== END 2025-08-14 13:44 | disposition left against medical advice (07) ==
LOC: ANHED 12:13
DX: Z53.21 Procedure and treatment not carried out due to patient leaving prior to being seen by health care provider (principal)
CPT/HCPCS: 99199